=== PATIENT | male | born 1930 | race Caucasian/White ===

== ENCOUNTER → 2019-02-04 | Outpatient (CLI) | payer MEDICARE, BC ==
[~2019-02-04] MED LIST: ALLO300T PO; ASPI-496 PO; ATOR40TA PO; AZIT500T PO; ERGO500017 PO; FURO40TA6 PO; NAPR-685 PO; PANT40TA5 PO; POTA10TA11 PO; PRAS10TA4 PO; RAMI2.5C2 PO; RAMI5CAP35 PO
== END | disposition home or self-care (01) ==
LOC: CFH 07:04
PROVIDERS: ATTEND Internal Medicine Cardiovascular Disease
DX: I08.8 Other rheumatic multiple valve diseases (principal); I10 Essential (primary) hypertension; I25.2 Old myocardial infarction; E78.5 Hyperlipidemia, unspecified; Z95.1 Presence of aortocoronary bypass graft; Z87.891 Personal history of nicotine dependence
CPT/HCPCS: 93306

== ENCOUNTER 2019-03-10 12:20 | Outpatient (CLI) | payer MEDICARE, BC | END 2019-03-10 23:59 | disposition home or self-care (01) | LOC: CARD 12:20 | PROVIDERS: ATTEND Registered Nurse | DX: I70.213 Atherosclerosis of native arteries of extremities with intermittent claudication, bilateral legs (principal); I25.2 Old myocardial infarction; Z95.1 Presence of aortocoronary bypass graft; Z87.891 Personal history of nicotine dependence | CPT/HCPCS: 93922; 93925; 94010; 94726; 94729 ==

== ENCOUNTER 2019-04-07 10:56 | Inpatient (IN) | payer MEDICARE, BC ==
[2019-04-07] VITALS (10 sets, daily range): BP systolic 104–155; BP diastolic 51–89
[~2019-04-07] VITALS: Ht 177.8 cm; Wt 89.2 kg
[2019-04-07 11:43] LABS: MEAN CORPUSCULAR VOLUME 62.6 fL (81-97); MEAN PLATELET VOLUME 9.1 fL (7.4-10.4); PLATELET COUNT 242 x10^3/uL (130-400); RED BLOOD COUNT 3.02 x10^6/uL (4.38-5.82); RED CELL DISTRIBUTION WIDTH 19.6 % (9.4-14.8)
[2019-04-07 11:46] LABS: MEAN CORPUSCULAR HGB CONC 28.7 g/dL (33.2-36.2)
[2019-04-07 11:57] LABS: ALBUMIN 3.3 g/dL (3.4-5.0); ANION GAP 11 mmol/L (5-15); CALCIUM 8.4 mg/dL (8.5-10.1); CHLORIDE 109 mmol/L (98-107); CREATININE 1.86 mg/dL (0.7-1.3)
[2019-04-07] MEDS ORDERED: SODIUM CHLORIDE FLUSH 10ML SYR IVF ONE (12:00)
[2019-04-07 12:01] LABS: MD YES; TROPONIN I 0.062 ng/mL (0.000-0.045)
--- NOTE | 2019-04-07 12:02 | NUR ---
PT PRESENTING TO ER FOR SOB, EDEMA IN BILATERAL LOWER EXT AND HANDS FOR MONTHS. SEEN TODAY BY WOLF SEBASTIAN AND SENT HERE. CONNECTED TO ALL MONITORING, SIGIFREDO HR NOTED. AT BEDSIDE. LABS COLLECTED, RAD COMPLETED. CALL LIGHT WITHIN REACH
[2019-04-07 12:03] LABS: ANISOCYTOSIS 1+; BASOS#(MANUAL) 0.06 x10^3/uL (0-0.1); BASOS% (MANUAL) 1 % (0-1); EOS#(MANUAL) 0.06 x10^3/uL (0.0-0.4); EOS% (MANUAL) 1 % (1-7); LYMPHS% (MANUAL) 14 % (22-44); METAMYELOCYTES# (MANUAL) 0.06 x10^3/uL (0-0); METAMYELOCYTES% (MANUAL) 1 % (0-1); MONOS#(MANUAL) 0.26 x10^3/uL (0.3-2.7); MONOS% (MANUAL) 4 % (2-9); SEG#(MANUAL) 5.06 x10^3/uL (1.8-6.8); SEGS% (MANUAL) 79 % (42-75)
[2019-04-07 12:04] LABS: HYPOCHROMIA 2+; MICROCYTOSIS 2+; OVALOCYTES 2+
[2019-04-07 12:05] LABS: ACANTHOCYTES 1+
--- NOTE | 2019-04-07 12:05 | NUR ---
PT + FOR BLOOD IN STOOL. MD TO BEDSIDE TO DISCUSS TRANSFUSION WITH PT AND FAMILY
[2019-04-07 12:06] LABS: POLYCHROMASIA 1+
[2019-04-07 12:07] LABS: SCHISTOCYTES 1+
[2019-04-07 12:10] LABS: <PLATELET ESTIMATE> ADEQUATE; <PLT MORPHOLOGY> NORMAL PLT MORPH
[2019-04-07 12:18] LABS: INTERNATIONAL NORMALIZED RATIO 1.18 (0.93-1.1); PROTHROMBIN TIME 12.5 Seconds (9.6-11.5)
[2019-04-07] MEDS ORDERED: FUROSEMIDE 40 MG/4 ML IV ONE (12:30)
[2019-04-07] MEDS ORDERED: FUROSEMIDE 40 MG/4 ML ONE (12:34)
--- NOTE | 2019-04-07 12:49 | NUR ---
PT MEDCIATED PER APR. BLOOD CONSENT SIGNED
--- NOTE | 2019-04-07 13:05 | NUR ---
UNIT OR BLOOD TRANSFUSING NOW
--- NOTE | 2019-04-07 13:10 | NUR ---
HOSPITALIST AT BEDSIDE NOW
[2019-04-07] MEDS ORDERED: FURO-92 PO (13:25)
--- NOTE | 2019-04-07 14:19 | NUR ---
REPORT GIVEN TO TASNEEM RN, PT READY FOR TRANSPORT TO FLOOR
--- NOTE | 2019-04-07 14:25 | NUR ---
BLOOD STILL TRANSFUSING AT TIME OF TRANSFER
[2019-04-07] MEDS ORDERED: POTASSIUM CHLORIDE 20 MEQ PACKET PO SCH (14:30)
[2019-04-07] MEDS ORDERED: PANTOPRAZOLE 40 MG IV IVPush SCH (14:30)
[2019-04-07] MEDS: PANTOPRAZOLE 40 MG IV IVPush SCH (18:11)
[2019-04-07 18:22] LABS: TROPONIN I 0.066 ng/mL (0.000-0.045)
[2019-04-07] MEDS: FUROSEMIDE 40 MG/4 ML IV SCH (23:13)
[2019-04-07] MEDS: RAMIPRIL 5 MG CAP PO SCH (23:14)
[2019-04-07] MEDS: ATORVASTATIN 40 MG TABLET PO SCH (23:14)
[2019-04-08 00:01] VITALS: BP_SYST 146; BP_SYST 147; BP_DIAS 76
[2019-04-08 05:49] LABS: ALBUMIN 3.1 g/dL (3.4-5.0); ANION GAP 8 mmol/L (5-15); CALCIUM 8.7 mg/dL (8.5-10.1); CHLORIDE 109 mmol/L (98-107)
[2019-04-08] MEDS: PANTOPRAZOLE 40 MG IV IVPush SCH ×2 (05:57→18:27)
[2019-04-08 06:02] LABS: % IRON SATURATION 5 % (20-55); ALANINE AMINOTRANSFERASE 15 U/L (12-78); ALKALINE PHOSPHATASE 83 U/L (45-117); BILIRUBIN,TOTAL 3.1 mg/dL (0.2-1.0); CREATININE 1.41 mg/dL (0.7-1.3); IRON LEVEL 19 mcg/dL (65-175); TOTAL IRON BINDING CAPACITY 408 mcg/dL (250-450); TOTAL PROTEIN 5.4 g/dL (6.4-8.2)
[2019-04-08 06:08] LABS: MEAN CORPUSCULAR HEMOGLOBIN 21.3 pg (27.5-34.5); MEAN CORPUSCULAR HGB CONC 30.9 g/dL (33.2-36.2); MEAN CORPUSCULAR VOLUME 69.1 fL (81-97); MEAN PLATELET VOLUME 9.3 fL (7.4-10.4); PLATELET COUNT 202 x10^3/uL (130-400); RED BLOOD COUNT 3.66 x10^6/uL (4.38-5.82); RED CELL DISTRIBUTION WIDTH 27.1 % (9.4-14.8)
[2019-04-08 06:09] LABS: MD YES
[2019-04-08 06:10] LABS: EOS#(MANUAL) 0.19 x10^3/uL (0.0-0.4); EOS% (MANUAL) 3 % (1-7); LYMPH#(MANUAL) 0.77 x10^3/uL (1-3.4); LYMPHS% (MANUAL) 12 % (22-44); MONOS#(MANUAL) 0.45 x10^3/uL (0.3-2.7); MONOS% (MANUAL) 7 % (2-9); SEG#(MANUAL) 4.99 x10^3/uL (1.8-6.8); SEGS% (MANUAL) 78 % (42-75)
[2019-04-08 06:11] LABS: ANISOCYTOSIS 2+; HYPOCHROMIA 2+; MICROCYTOSIS 2+; POLYCHROMASIA 1+; SCHISTOCYTES 1+
[2019-04-08 06:12] LABS: ACANTHOCYTES 1+; ECHINOCYTES 1+; OVALOCYTES 1+; TEAR DROPS 1+
[2019-04-08 06:14] LABS: <PLATELET ESTIMATE> ADEQUATE; <PLT MORPHOLOGY> NORMAL PLT MORPH
[2019-04-08 06:39] VITALS: BP 145/74
[2019-04-08] MEDS: RAMIPRIL 5 MG CAP PO SCH ×2 (08:49→21:29)
[2019-04-08] MEDS: ALLOPURINOL 100 MG TABLET PO SCH (08:49)
[2019-04-08] MEDS: FUROSEMIDE 40 MG/4 ML IV SCH ×2 (08:50→17:10)
[2019-04-08] MEDS ORDERED: ASPIRIN 81 MG TABLET EC PO SCH (09:00)
[2019-04-08] MEDS ORDERED: PRASUGREL 10 MG TABLET PO SCH (09:00)
[2019-04-08] MEDS: POTASSIUM CHLORIDE 20 MEQ PACKET PO SCH (09:52)
[2019-04-08 13:47] VITALS: BP 103/59
[2019-04-08] MEDS ORDERED: GOLYTELY 4,000ML ORAL.SOL PO ONE (15:00)
[2019-04-08 17:08] VITALS: BP 145/67
[2019-04-08 20:05] VITALS: BP 127/57
[2019-04-08] MEDS: ATORVASTATIN 40 MG TABLET PO SCH (21:29)
[2019-04-09 02:00] VITALS: BP 129/66
[2019-04-09 05:13] LABS: ALBUMIN 2.9 g/dL (3.4-5.0); ANION GAP 8 mmol/L (5-15); CALCIUM 8.3 mg/dL (8.5-10.1); CHLORIDE 105 mmol/L (98-107)
[2019-04-09 05:17] LABS: ALANINE AMINOTRANSFERASE 15 U/L (12-78); ALKALINE PHOSPHATASE 85 U/L (45-117); CREATININE 1.39 mg/dL (0.7-1.3)
[2019-04-09 05:27] LABS: MEAN CORPUSCULAR HEMOGLOBIN 21.2 pg (27.5-34.5); MEAN CORPUSCULAR HGB CONC 30.6 g/dL (33.2-36.2); MEAN CORPUSCULAR VOLUME 69.3 fL (81-97); MEAN PLATELET VOLUME 9.1 fL (7.4-10.4); PLATELET COUNT 210 x10^3/uL (130-400); RED BLOOD COUNT 3.64 x10^6/uL (4.38-5.82); RED CELL DISTRIBUTION WIDTH 27.7 % (9.4-14.8)
[2019-04-09] MEDS: PANTOPRAZOLE 40 MG IV IVPush SCH ×2 (06:11→17:24)
[2019-04-09 06:14] LABS: <PLATELET ESTIMATE> ADEQUATE; <PLT MORPHOLOGY> NORMAL PLT MORPH; ACANTHOCYTES 1+; ANISOCYTOSIS 2+; BASOPHILS # (AUTO) 0.03 x10^3/uL (0-0.1); BASOPHILS % (AUTO) 0 % (0-1); ECHINOCYTES 1+; EOSINOPHILS % (AUTO) 3 % (1-7); HYPOCHROMIA 2+; LYMPHOCYTES # (AUTO) 0.87 x10^3/uL (1-3.4); LYMPHOCYTES % (AUTO) 12 % (22-44); MD MORPH REVIEW ONLY; MICROCYTOSIS 2+; MONOCYTES # (AUTO) 0.55 x10^3/uL (0.2-0.8); MONOCYTES % (AUTO) 7 % (2-9); NEUTROPHILS # (AUTO) 5.79 x10^3/uL (1.8-6.8); NEUTROPHILS % (AUTO) 78 % (42-75); OVALOCYTES 1+; POLYCHROMASIA 1+; SCHISTOCYTES 1+; TEAR DROPS 1+
[2019-04-09 07:58] VITALS: BP 155/72
[2019-04-09] MEDS ORDERED: POTASSIUM CHLORIDE 20 MEQ PACKET PO SCH (08:00)
[2019-04-09] MEDS: FUROSEMIDE 40 MG/4 ML IV SCH ×2 (08:00→17:24)
[2019-04-09] MEDS: CLOPIDOGREL 75 MG TABLET PO SCH (08:01)
[2019-04-09] MEDS: ALLOPURINOL 100 MG TABLET PO SCH (08:01)
[2019-04-09] MEDS: POTASSIUM CHLORIDE 20 MEQ PACKET PO SCH (08:01)
[2019-04-09] MEDS: RAMIPRIL 5 MG CAP PO SCH ×2 (08:41→21:10)
[2019-04-09] MEDS ORDERED: PROPOFOL 50 ML ONE (13:29)
[2019-04-09] MEDS ORDERED: OXYcodone 5 MG/5 ML ORAL.SOL UDC PO PRN (14:00)
[2019-04-09] MEDS ORDERED: EPHEDRINE 50 MG/ML, 1ML IVPush PRN (14:00)
[2019-04-09] MEDS ORDERED: LABETALOL 5MG/ML, 20ML IV PRN (14:00)
[2019-04-09] MEDS ORDERED: ONDANSETRON 2MG/ML, 2ML IV PRN (14:00)
[2019-04-09] MEDS ORDERED: FENTANYL PF 100 MCG/2ML IV PRN (14:00)
[2019-04-09] MEDS ORDERED: PROMETHAZINE 25 MG/ML, 1ML IV PRN (14:00)
[2019-04-09] MEDS ORDERED: HYDROmorphone 2 MG/ML, 1ML IVPush PRN (14:00)
[2019-04-09] MEDS ORDERED: hydrALAzine 20 MG/ML, 1ML IV PRN (14:00)
[2019-04-09] MEDS ORDERED: ACETAMINOPHEN 325 MG TABLET PO PRN (14:00)
[2019-04-09] MEDS ORDERED: MEPERIDINE/PF 25MG/ML,1ML IVPush PRN (14:00)
[2019-04-09] MEDS ORDERED: GLYCOPYRROLATE 0.2MG/1ML, 5ML ONE (14:03)
[2019-04-09] MEDS ORDERED: EPINEPHRINE SYRINGE 0.1 MG/ML, 10ML ONE (14:28)
[2019-04-09 15:58] VITALS: BP 144/57
[2019-04-09 17:20] VITALS: BP 136/71
[2019-04-09 21:07] VITALS: BP 124/61
[2019-04-09] MEDS: ATORVASTATIN 40 MG TABLET PO SCH (21:10)
[2019-04-10 01:04] VITALS: BP 148/71
[2019-04-10 06:12] LABS: ALANINE AMINOTRANSFERASE 14 U/L (12-78); ALBUMIN 3.2 g/dL (3.4-5.0); ANION GAP 10 mmol/L (5-15); CALCIUM 8.6 mg/dL (8.5-10.1); CHLORIDE 103 mmol/L (98-107); CREATININE 1.29 mg/dL (0.7-1.3)
[2019-04-10 06:15] LABS: ALKALINE PHOSPHATASE 98 U/L (45-117); BILIRUBIN,TOTAL 2.9 mg/dL (0.2-1.0); TOTAL PROTEIN 5.6 g/dL (6.4-8.2)
[2019-04-10] MEDS: PANTOPRAZOLE 40 MG IV IVPush SCH (06:23)
[2019-04-10 06:30] LABS: MD YES; MEAN CORPUSCULAR HEMOGLOBIN 21.3 pg (27.5-34.5); MEAN CORPUSCULAR HGB CONC 30.8 g/dL (33.2-36.2); MEAN CORPUSCULAR VOLUME 69.2 fL (81-97); MEAN PLATELET VOLUME 8.9 fL (7.4-10.4); PLATELET COUNT 220 x10^3/uL (130-400); RED BLOOD COUNT 4.16 x10^6/uL (4.38-5.82); RED CELL DISTRIBUTION WIDTH 27.9 % (9.4-14.8)
[2019-04-10 06:31] LABS: LYMPH#(MANUAL) 0.13 x10^3/uL (1-3.4); LYMPHS% (MANUAL) 1 % (22-44); MONOS#(MANUAL) 0.51 x10^3/uL (0.3-2.7); MONOS% (MANUAL) 4 % (2-9); SEG#(MANUAL) 12.07 x10^3/uL (1.8-6.8); SEGS% (MANUAL) 95 % (42-75)
[2019-04-10 06:33] LABS: ACANTHOCYTES 1+; ANISOCYTOSIS 2+; ECHINOCYTES 1+; HYPOCHROMIA 2+; MICROCYTOSIS 2+; OVALOCYTES 1+; POLYCHROMASIA 1+; SCHISTOCYTES 1+; TEAR DROPS 1+
[2019-04-10 06:34] LABS: <PLATELET ESTIMATE> ADEQUATE; <PLT MORPHOLOGY> NORMAL PLT MORPH
[2019-04-10] MEDS: CLOPIDOGREL 75 MG TABLET PO SCH (08:16)
[2019-04-10] MEDS: RAMIPRIL 5 MG CAP PO SCH (08:16)
[2019-04-10] MEDS: POTASSIUM CHLORIDE 20 MEQ PACKET PO SCH (08:16)
[2019-04-10] MEDS: FUROSEMIDE 40 MG/4 ML IV SCH (08:16)
[2019-04-10] MEDS: ALLOPURINOL 100 MG TABLET PO SCH (08:17)
[2019-04-10 08:46] VITALS: BP 123/59
[2019-04-10] MEDS ORDERED: FURO40TA6 PO (09:58)
[2019-04-10] MEDS ORDERED: POTA20PA25 PO (09:58)
[2019-04-10] MEDS ORDERED: OMEP-110 PO (09:58)
[2019-04-10 12:53] VITALS: BP 100/54
[2019-04-10] MEDS ORDERED: CLOP75TA52 PO (15:02)
[2019-04-10] MEDS ORDERED: FUROSEMIDE 40 MG TABLET PO SCH (17:00)
== END 2019-04-10 15:16 | disposition home or self-care (01) | DRG 377 ==
LOC: ED 12:54 → EDIP 12:55 → 5SO 14:27 → DCLOUNGE 04-10 14:51
PROVIDERS: ADMIT Internal Medicine; ATTEND Internal Medicine
PROC: 30233N1 Transfusion of Nonautologous Red Blood Cells into Peripheral Vein, Percutaneous Approach (ICD-10-PCS; 2019-04-07)
PROC: 0DBM8ZZ Excision of Descending Colon, Via Natural or Artificial Opening Endoscopic (ICD-10-PCS; 2019-04-09)
PROC: 0W3P8ZZ Control Bleeding in Gastrointestinal Tract, Via Natural or Artificial Opening Endoscopic (ICD-10-PCS; 2019-04-09)
PROC: 0DBH8ZZ Excision of Cecum, Via Natural or Artificial Opening Endoscopic (ICD-10-PCS; principal; 2019-04-09 13:30)
DX: K55.21 Angiodysplasia of colon with hemorrhage (principal); I50.21 Acute systolic (congestive) heart failure; I13.0 Hypertensive heart and chronic kidney disease with heart failure and stage 1 through stage 4 chronic kidney disease, or unspecified chronic kidney disease; N17.9 Acute kidney failure, unspecified; E87.6 Hypokalemia; E78.5 Hyperlipidemia, unspecified; I25.10 Atherosclerotic heart disease of native coronary artery without angina pectoris; I73.9 Peripheral vascular disease, unspecified; K21.9 Gastro-esophageal reflux disease without esophagitis; K44.9 Diaphragmatic hernia without obstruction or gangrene; K63.5 Polyp of colon; J98.4 Other disorders of lung; K57.31 Diverticulosis of large intestine without perforation or abscess with bleeding; I35.0 Nonrheumatic aortic (valve) stenosis; K64.0 First degree hemorrhoids; I25.5 Ischemic cardiomyopathy; R00.1 Bradycardia, unspecified; M10.9 Gout, unspecified; N18.9 Chronic kidney disease, unspecified; Z66 Do not resuscitate; Z79.02 Long term (current) use of antithrombotics/antiplatelets; Z87.891 Personal history of nicotine dependence; Z95.1 Presence of aortocoronary bypass graft; Z95.5 Presence of coronary angioplasty implant and graft
CPT/HCPCS: 36415; 71045; 80048; 80053; 82040; 83010; 83540; 83550; 83615; 83735; 83880; 84443; 84484; 85014; 85018; 85025; 85610; 85730; 86850; 86900; 86923; 88305; 93005; 93306; 96374; 99291; G0378; J1940; J2704; C9113; P9016

== ENCOUNTER → 2019-07-09 | Outpatient (CLI) | payer MEDICARE, BC ==
[~2019-07-09] MED LIST changes: +CLOP75TA52 PO; +FURO-92 PO; +OMEP-110 PO; +POTA20PA25 PO; +REGADENOSON 0.4 MG/5 ML SYRINGE ONE
== END | disposition home or self-care (01) ==
LOC: CFH 08:16
PROVIDERS: ATTEND Internal Medicine Cardiovascular Disease
DX: I21.09 ST elevation (STEMI) myocardial infarction involving other coronary artery of anterior wall (principal); I21.19 ST elevation (STEMI) myocardial infarction involving other coronary artery of inferior wall; I25.10 Atherosclerotic heart disease of native coronary artery without angina pectoris; I10 Essential (primary) hypertension
CPT/HCPCS: 78452; 93017; A9502; J2785

== ENCOUNTER 2019-10-13 07:05 | Outpatient (CLI) | payer MEDICARE, BC ==
[~2019-10-13 07:05] MED LIST changes: -REGADENOSON 0.4 MG/5 ML SYRINGE ONE
== END 2019-10-13 23:59 | disposition home or self-care (01) ==
LOC: CFH 07:05
PROVIDERS: ATTEND Physician Assistant Medical
DX: I08.8 Other rheumatic multiple valve diseases (principal)
CPT/HCPCS: 93306